=== PATIENT | male | born 1970 | race African-American/Black ===

== ENCOUNTER 2024-01-29 22:35 | Emergency (ER) | payer OTHER, SELFPAY ==
[2024-01-29] MEDS ORDERED: Ketorolac Tromethamine 60 MG/2 ML VIAL ONE (22:47)
[2024-01-30] MEDS ORDERED: HYDROcodone/Acetaminophen 5/325 mg Tablet ONE (00:17)
== END 2024-01-30 01:31 | disposition home or self-care (01) ==
LOC: NAV ERS 22:35
DX: M25.552 Pain in left hip (principal); I71.20 Thoracic aortic aneurysm, without rupture, unspecified; R10.9 Unspecified abdominal pain; V69.9XXD Occupant (driver) (passenger) of heavy transport vehicle injured in unspecified traffic accident, subsequent encounter
CPT/HCPCS: 71250; 74176; 96374; G0390; J1885